=== PATIENT | female | born 2005 | race African-American/Black ===

== ENCOUNTER 2025-03-28 17:40 | Emergency (ER) | payer MEDICAID ==
[~2025-03-28] VITALS: Ht 170.2 cm; Wt 55.0 kg
[2025-03-28 17:51] VITALS: BP 101/51; O2SAT 100
[2025-03-28 18:07] VITALS: PULSE 101; RESP 22; O2SAT 98
[2025-03-28] MEDS ORDERED: CEPH500T MT (22:37)
[2025-03-28] MEDS ORDERED: BACITRACIN ZINC OINT UDPKT TOP ONE (22:45)
== END 2025-03-28 23:00 | disposition home or self-care (01) ==
LOC: ER 17:40
DX: L02.413 Cutaneous abscess of right upper limb (principal); Z48.817 Encounter for surgical aftercare following surgery on the skin and subcutaneous tissue
CPT/HCPCS: 99283